=== PATIENT | female | born 1970 | race Caucasian/White ===

== ENCOUNTER → 2019-02-02 | Outpatient (CLI) | payer OTHER ==
--- NOTE | 2019-02-02 12:21 | Diagnostic Imaging Report ---
TECHNIQUE: Magnetic resonance imaging of the LEFT KNEE was performed WITHOUT injected contrast. HISTORY: TEAR OF LATERAL MENISCUS LT KNEE , swells after running, query lateral meniscal tear, old injury, reported history of knee "scope" COMPARISON: None available. FINDINGS: LIGAMENTS AND TENDONS: ACL: Intact PCL: Intact Collateral ligaments: Intact Iliotibial band: Unremarkable Popliteal tendon: Intact Extensor mechanism: Intact JOINT: Menisci: Medial: Intact Lateral: Mild attenuation of the free margin of the body. Subtle obliquely oriented linear signal within the body, extending to the tibial articular surface (series 5 image 14). Articular Cartilage: Medial Compartment: No focal defect. Lateral Compartment: Low-grade erosion and fissuring of the weightbearing cartilage. Patellofemoral Compartment: High-grade to full-thickness erosions of the lateral patellar facet and superior aspect of the patella at the junction of the apex and medial facet. Joint Fluid: The amount of fluid within the joint is within physiologic limits. BONES: No focal or infiltrative bone marrow replacing abnormality. No acute fracture. Minimal subchondral cystic changes of the patella underlying the high grade cartilage erosions. SOFT TISSUES: Otherwise, unremarkable. IMPRESSION: 1. 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 2. Postsurgical versus degenerative changes of the free margin of the body of the lateral meniscus and findings which may reflect a small superimposed oblique tear of the body. Signed by: Dr. Leif Rodriguez D.O., M.M.M. on 02/02/2019 12:18 PM
== END ==
LOC: MRI 10:54
PROVIDERS: ATTEND Specialist
DX: S83.28 Other tear of lateral meniscus, current injury (principal)

== ENCOUNTER → 2019-03-21 | Outpatient (CLI) | payer OTHER | LOC: MAMMO 10:04 | PROVIDERS: ATTEND Family Medicine | DX: Z12.31 Encounter for screening mammogram for malignant neoplasm of breast (principal) | CPT/HCPCS: 77067 ==

== ENCOUNTER → 2022-08-18 | Outpatient (CLI) | payer OTHER | LOC: MAMMO 08:12 | PROVIDERS: ATTEND Family Medicine | DX: Z12.31 Encounter for screening mammogram for malignant neoplasm of breast (principal) | CPT/HCPCS: 77067 ==